=== PATIENT | female | born 1975 | race Caucasian/White ===

== ENCOUNTER 2017-09-21 05:17 | Emergency (ER) | payer SELFPAY ==
--- NOTE | 2017-09-21 05:20 | EDPHY ---
H & P HPI/ROS: HPI CHIEF COMPLAINT: Cold sores on upper lips HISTORY OF PRESENT ILLNESS: This patient very pleasant 42-year-old female she is otherwise healthy however she suffers from cold sores. She states she gets a bad outbreak every once in awhile typically once a year sometimes every once every 2 years. She presents emergency room with pain and swelling to the upper lip. She has 2 identifiable blisters on the upper lip. She states he is ruptured over past 24 hr. Somewhat painful. No fever. No mucosal lesions. Denies trouble swelling. Denies fever. Denies headache neck pain chest pain or shortness of breath. Past Medical History: Cold sores Past Surgical History: No recent surgery Social History: Denies drugs alcohol tobacco products. Family History: Noncontributory ROS REVIEW OF SYSTEMS: A comprehensive 10 point review of systems is otherwise negative aside from elements mentioned in the history of present illness. Exam Constitutional appears well nontoxic triage nursing summary reviewed, vital signs reviewed, awake/alert. Eyes normal conjunctivae and sclera, EOMI, PERRLA. HENT oropharynx no lesions, upper lip there two discrete vesicular lesions consistent with HSV cold sore normal inspection, atraumatic, moist mucus membranes, no epistaxis, neck supple/ no meningismus, no raccoon eyes. Respiratory clear to auscultation bilaterally, normal breath sounds, no respiratory distress, no wheezing. Cardiovascular rate normal, regular rhythm, no murmur, no edema, distal pulses normal. Gastrointestinal soft, non-tender, no rebound, no guarding, normal bowel sounds, no distension, no pulsatile mass. Genitourinary no CVA tenderness. Musculoskeletal no midline vertebral tenderness, full range of motion, no calf swelling, no tenderness of extremities, no meningismus, good pulses, neurovascularly intact. Skin pink, warm, & dry, no rash, skin atraumatic. Neurologic awake, alert and oriented x 3, AAOx3, moves all 4 extremities equally, motor intact, sensory intact, CN II-XII intact, normal cerebellar, normal vision, normal speech. Psychiatric normal mood/affect. Heme/Lymph/Immune no lymphadenopathy. Differential Diagnosis: Includes but is not limited to in no particular order HSV 1, HSV 2, herpes, cold sores Medical Decision Making: Plan for this patient Valtrex 1000 mg here p.o.. IM Toradol 60. Re-evaluation: Plan will be for prescription of Valtrex, ibuprofen 800 mg. Return precautions discussed with her. Recommend not going to work today as these are active viral lesions. Source: Patient Constitutional: Initial Vital Signs Temperature (C) 37.0 C 09/21/17 05:19 Heart Rate 86 09/21/17 05:19 Respiratory Rate 16 09/21/17 05:19 Blood Pressure 116/72 09/21/17 05:19 O2 Sat (%) 98 09/21/17 05:19 O2 Delivery Mode Room Air Allergies/Adverse Reactions: No Known Allergies Allergy (Unverified 09/21/17 05:21) Home Medications: Medication Instructions Recorded Ibuprofen [Motrin (*)] 800 mg PO Q6-8PRN #14 tab 09/21/17 Multivitamin 09/21/17 Valacyclovir HCl [Valtrex] 1,000 mg PO TID #21 tab 09/21/17 Departure - Departure Disposition: Home, Routine, Self-Care Clinical Impression: HSV (herpes simplex virus) infection Condition: Good Instructions: Oral Herpes Simplex Virus Infections (ED) Additional Instructions: 1. Take anti-viral as prescribed. 2. Return emergency room if you have worsening symptoms questions or concerns Referrals: NONE *PRIMARY CARE P,. [Primary Care Provider] - As per Instructions Prescriptions: Ibuprofen [Motrin (*)] 800 mg PO Q6-8PRN #14 tab Valacyclovir HCl [Valtrex] 1,000 mg PO TID #21 tab
[2017-09-21 05:22] VITALS: BP 116/72; PULSE 86; RESP 16; TEMP 98.6; O2SAT 98
[2017-09-21] MEDS ORDERED: valACYclovir 500 MG TAB PO ONE (05:26)
[2017-09-21] MEDS ORDERED: KETOROLAC 30 MG/1 ML SDV IM ONE (05:26)
== END 2017-09-21 05:42 | disposition home or self-care (01) ==
DX: B00.9 Herpesviral infection, unspecified (principal)
CPT/HCPCS: J1885